=== PATIENT | female | born 1995 | race African-American/Black ===

== ENCOUNTER → 2018-03-12 | Emergency (ER) | payer OTHER ==
[~2018-03-12] VITALS: Ht 165.1 cm; Wt 99.8 kg
[~2018-03-12] MED LIST: ATIVAN1 MG; CLONAZEPAM1 GM; [UNRECOGNIZED DRUG - REMARK]
== END | disposition home or self-care (01) ==
LOC: ER 00:25
DX: R00.0 Tachycardia, unspecified (principal); F41.0 Panic disorder [episodic paroxysmal anxiety]